=== PATIENT | female | born 1990 | race Hispanic/Latino ===

== ENCOUNTER 2017-05-13 13:34 | Emergency (ER) | payer OTHER ==
--- NOTE | 2017-05-13 14:51 | Cat Scan Report ---
CT HEAD WITHOUT CONTRAST: HISTORY: Seizure. TECHNIQUE: Sequential 2.5mm CT images. COMPARISON: none. FINDINGS: Cerebral Parenchyma: Within normal limits. Cerebellum: Within normal limits. Brainstem: Within normal limits. Ventricles: Normal. Sella: Normal. Extra-axial spaces: Normal. Basal Cisterns: Normal. Intracranial Hemorrhage: None. Midline Shift: None. Calvarium: Normal. A small scalp hematoma is identified in the right frontotemporal region measuring 5 cm in diameter and 0.6 cm in thickness. Sinuses: Normal. Mastoid Air Cells: Normal. Visualized Orbits: Normal. IMPRESSION: Cranial CT scan within normal limits. Right scalp hematoma.
[2017-05-13] MEDS ORDERED: KEPPRA 1,000 MG/NS 0.75% 100ML 1,000 MG/100 ML BAG IV ONE (15:08)
--- NOTE | 2017-05-13 15:20 | Emergency Department Report ---
ED Seizure HPI - General Chief Complaint: Seizure Stated Complaint: SEIZURE Time Seen by Provider: 05/13/17 14:52 Source: patient Mode of arrival: Stretcher Limitations: No Limitations - History of Present Illness Initial Comments: Patient is a 26 years old female history of seizure since 2009, she was seen by a neurologist started on Keppra for a month patient did not have any seizure that she wanted of her medication recently. This is one episode of seizure. Patient stated that she hit her head. Patient denied any other symptoms. MD Complaint: seizure -: Sudden Description of Episode: loss of consciousness, tonic-clonic movement Duration of Episode: 1 -: minutes(s) Witnessed:: No Trauma: Yes (patient hit her head) Seizure History: known seizure disorder Possible Precipitating Event: none Associated Symptoms: denies other symptoms - Related Data Allergies Allergy/AdvReac Type Severity Reaction Status Date / Time codeine Allergy Angioedema Verified 05/13/17 13:44 ED Review of Systems ROS: Stated complaint: SEIZURE Other details as noted in HPI Comment: All other systems reviewed and negative Constitutional: denies: chills, fever ENT: denies: ear pain, throat pain, dental pain Respiratory: denies: cough Cardiovascular: denies: chest pain Gastrointestinal: denies: abdominal pain, nausea, vomiting, diarrhea Genitourinary: denies: urgency, frequency Neurological: headache. denies: numbness, paresthesias Psychiatric: denies: depression, auditory hallucinations, visual hallucinations , homicidal thoughts, suicidal thoughts ED Past Medical Hx - Past Medical History Previous Medical History?: Yes Hx Seizures: Yes - Surgical History Past Surgical History?: No - Social History Smoking Status: Never Smoker Substance Use Type: None ED Physical Exam - General Limitations: No Limitations General appearance: alert, in no apparent distress - Head Head exam: Present: atraumatic, normocephalic, normal inspection - Eye Eye exam: Present: normal appearance, PERRL - ENT ENT exam: Present: normal exam, mucous membranes moist - Neck Neck exam: Present: normal inspection, full ROM. Absent: tenderness, meningismus, lymphadenopathy, thyromegaly - Respiratory Respiratory exam: Present: normal lung sounds bilaterally. Absent: respiratory distress, wheezes, rales, rhonchi, chest wall tenderness - Cardiovascular Cardiovascular Exam: Present: regular rate, normal rhythm, normal heart sounds - GI/Abdominal GI/Abdominal exam: Present: soft, normal bowel sounds. Absent: distended, tenderness, guarding, rebound, rigid, organomegaly, mass, bruit, pulsatile mass , hernia - Extremities Exam Extremities exam: Present: normal inspection, full ROM, normal capillary refill - Back Exam Back exam: Present: normal inspection, full ROM. Absent: tenderness, CVA tenderness (R), CVA tenderness (L) - Neurological Exam Neurological exam: Present: alert, oriented X3, CN II-XII intact, normal gait, reflexes normal. Absent: motor sensory deficit - Psychiatric Psychiatric exam: Present: normal affect, normal mood. Absent: suicidal ideation - Skin Skin exam: Present: warm, intact, normal color. Absent: cyanosis ED Course Vital Signs 05/13/17 13:45 Temperature 97.8 F Pulse Rate 74 Respiratory 16 Rate Blood Pressure 109/72 O2 Sat by Pulse 97 Oximetry - Reevaluation(s) Reevaluation #1: 05/13/17 17:13 No seizure activity noticed in the ER. Patient receive 1 g of IV Keppra. I advised patient to follow-up with her neurologist for further testing.. ED Medical Decision Making - Lab Data Result diagrams: 05/13/17 15:24 05/13/17 15:24 - Radiology Data Radiology results: report reviewed Referring Physician: ODILON MORRIS Patient Name: ALEISHA CASTELLANO Date of : 1990 Sex: Female Report Date: 2017-05-13 Report Status: [place] [address] Cat Scan Report Signed Patient: ALEISHA CASTELLANO MR#: [id number] : 1990 Acct:[id number] Age/Sex: 26 / F ADM Date: 05/13/17 Loc: ED Attending Dr: Ordering Physician: ODILON MORRIS MD Date of Service: 05/13/17 Procedure(s): CT head/brain wo con Accession Number(s): [id number] cc: ODILON MORRIS MD CT HEAD WITHOUT CONTRAST: HISTORY: Seizure. TECHNIQUE: Sequential 2.5mm CT images. COMPARISON: none. FINDINGS: Cerebral Parenchyma: Within normal limits. Cerebellum: Within normal limits. Brainstem: Within normal limits. Ventricles: Normal. Sella: Normal. Extra-axial spaces: Normal. Basal Cisterns: Normal. Intracranial Hemorrhage: None. Midline Shift: None. Calvarium: Normal. A small scalp hematoma is identified in the right frontotemporal region measuring 5 cm in diameter and 0.6 cm in thickness. Sinuses: Normal. Mastoid Air Cells: Normal. Visualized Orbits: Normal. IMPRESSION: Cranial CT scan within normal limits. Right scalp hematoma. Transcribed By: TTR Dictated By: ROSALINDA CARIAS JR, MD Electronically Authenticated By: ROSALINDA CARIAS JR, MD Signed Date/Time: 05/13/171445 DD/ 44 TD/TT: 05/13/171445 Critical care attestation.: If time is entered above; I have spent that time in minutes in the direct care of this critically ill patient, excluding procedure time. ED Disposition Clinical Impression: Seizure, Head injury Disposition: DC-01 TO HOME OR SELFCARE Is pt being admited?: No Condition: Stable Instructions: Minor Head Injury (ED), Epilepsy (ED)
[2017-05-13 15:57] LABS: BUN/Creatinine Ratio 38; Blood Urea Nitrogen 15 mg/dL (7-17); Calcium 8.7 mg/dL (8.4-10.2); Hemolysis Index 29
[2017-05-13 16:24] LABS: Hematocrit 35.8 % (30.3-42.9); Hemoglobin 11.9 gm/dl (10.1-14.3); Mean Corpuscular HGB Conc 33 % (30-34); Mean Corpuscular Hemoglobin 28 pg (28-32); Mean Corpuscular Volume 84 fl (79-97); Platelet Count 225 K/mm3 (140-440); Red Blood Count 4.27 M/mm3 (3.65-5.03)
[2017-05-13 17:02] LABS: Amorphous Crystals,Urine Few; Bacteria,Urine 1+ /HPF (Negative); Bilirubin,Urine NEG (Negative); Blood,Urine MOD (Negative); Color,Urine Yellow (Yellow); Mucus,Urine 3+ /HPF; Nitrite,Urine NEG (Negative); Protein,Urine <15 mg/dL mg/dL (Negative); Urobilinogen,Urine < 2.0 mg/dL (<2.0)
[2017-05-13 17:12] LABS: Amphetamine Screen,Urine PRESUMPTIVE NEGATIVE; Benzodiazepines Screen,Urine PRESUMPTIVE NEGATIVE; Cannabinoid Screen,Urine PRESUMPTIVE NEGATIVE; Cocaine Screen,Urine PRESUMPTIVE NEGATIVE; Methadone Screen,Urine PRESUMPTIVE NEGATIVE; Opiate Screen,Urine PRESUMPTIVE NEGATIVE
[2017-05-13 17:30] VITALS: BP 118/69
== END 2017-05-13 17:30 | disposition home or self-care (01) ==
LOC: ED 13:34
DX: G40.909 Epilepsy, unspecified, not intractable, without status epilepticus (principal); S06.9X9A Unspecified intracranial injury with loss of consciousness of unspecified duration, initial encounter; Z88.6 Allergy status to analgesic agent; W22.8XXA Striking against or struck by other objects, initial encounter; Y93.89 Activity, other specified; Y92.89 Other specified places as the place of occurrence of the external cause; Y99.8 Other external cause status
CPT/HCPCS: 36415; 70450; 80048; 80307; 81001; 84703; 85027; 96365; 99285; J1953

== ENCOUNTER 2019-01-11 14:27 | Emergency (ER) | payer OTHER ==
[2019-01-11] MEDS ORDERED: ATIVAN ONE (14:46)
[2019-01-11] MEDS ORDERED: ATIVAN IV ONE (14:46)
[2019-01-11] MEDS ORDERED: KEPPRA 1,000 MG/NS 0.75% 100ML 1,000 MG/100 ML BAG IV ONE ×2 (14:49→14:52)
[2019-01-11] MEDS ORDERED: NACL 0.9% 1000 ML 1,000 ML IV ONE ×2 (15:38→20:28)
[2019-01-11 15:39] LABS: Hematocrit TNR % (30.3-42.9); Hemoglobin TNR gm/dl (10.1-14.3); Mean Corpuscular HGB Conc TNR % (30-34); Mean Corpuscular Volume TNR fl (79-97); Red Blood Count TNR M/mm3 (3.65-5.03); Red Cell Distribution Width TNR % (13.2-15.2)
[2019-01-11 15:40] LABS: Mean Platelet Volume TNR fl (6-12); Platelet Count TNR K/mm3 (140-440)
--- NOTE | 2019-01-11 15:44 | Emergency Department Report ---
ED Seizure HPI - General Chief Complaint: Seizure Stated Complaint: SEIZURE Time Seen by Provider: 01/11/19 15:12 Source: EMS (ems notes not available at time of chart dictation), RN notes reviewed, old records reviewed Mode of arrival: Stretcher Limitations: Altered Mental Status - History of Present Illness Initial Comments: This is a 28-year-old female. This patient is not known to this provider previously. The patient is currently postictal, and all the history is obtained from the nurse who was taking care of her. As per the nurse, patient was at work, and his usual state of health, when she reportedly had a seizure. A coworker caught her, and she did not fall. Apparently, EMS was contacted. In addition, initially in the emergency room, as per the nurse, the patient is alert and oriented, sober, and exhibits decision-making capacity. Shortly thereafter, the patient reportedly had another generalized tonic-clonic seizure, without trauma, which was terminated with Ativan. The patient is sleeping in the stretcher now, stable, and in no acute distress. She is sleeping but arousable. Additional history is unavailable at this time. No friends, family members or significant others are available for collateral information at this time. MD Complaint: seizure, possible seizure -: This afternoon Description of Episode: loss of consciousness, tonic-clonic movement -: second(s) Witnessed:: Yes Trauma: No Seizure History: known seizure disorder - Related Data Previous Rx's Medication Instructions Recorded Last Taken Type levETIRAcetam [Keppra] 500 mg PO BID #60 tablet 05/13/17 Unknown Rx levETIRAcetam [Keppra TAB] 500 mg PO BID #60 tablet 01/11/19 Unknown Rx Allergies Allergy/AdvReac Type Severity Reaction Status Date / Time codeine Allergy Angioedema Verified 05/13/17 13:44 ED Review of Systems ROS: Stated complaint: SEIZURE Other details as noted in HPI Comment: Unobtainable due to pts medical conditions ED Past Medical Hx - Past Medical History Hx Seizures: Yes - Social History Smoking Status: Never Smoker Substance Use Type: None - Medications Home Medications: Home Medications Medication Instructions Recorded Confirmed Last Taken Type levETIRAcetam [Keppra] 500 mg PO BID #60 tablet 05/13/17 Unknown Rx levETIRAcetam [Keppra TAB] 500 mg PO BID #60 tablet 01/11/19 Unknown Rx ED Physical Exam - General Limitations: Other (patient sleepy and postictal.) General appearance: in no apparent distress - Head Head exam: Present: atraumatic, normocephalic - Eye Eye exam: Present: normal appearance, PERRL - ENT ENT exam: Present: normal exam, normal orophraynx, mucous membranes moist, normal external ear exam - Neck Neck exam: Present: normal inspection. Absent: tenderness, meningismus - Respiratory Respiratory exam: Present: normal lung sounds bilaterally. Absent: respiratory distress - Cardiovascular Cardiovascular Exam: Present: regular rate, normal rhythm, normal heart sounds. Absent: bradycardia, tachycardia, irregular rhythm, systolic murmur, diastolic murmur, rubs, gallop - GI/Abdominal GI/Abdominal exam: Present: soft. Absent: distended, tenderness, guarding, rebound, rigid, pulsatile mass - Extremities Exam Extremities exam: Present: normal inspection, full ROM, other (2+ pulses noted in the bilateral upper, lower extremities. Compartments soft. No long bony ten derness. The pelvis is stable.). Absent: pedal edema, joint swelling, calf tenderness - Back Exam Back exam: Present: normal inspection. Absent: tenderness, CVA tenderness (R), CVA tenderness (L), muscle spasm, paraspinal tenderness, vertebral tenderness - Neurological Exam Neurological exam: Present: altered, other (the patient is postictal. There is no facial droop. Patient noted to be moving 4 extremities spontaneously.) - Skin Skin exam: Present: warm, dry, intact, normal color. Absent: rash ED Course Vital Signs 01/11/19 01/11/19 01/11/19 14:42 14:45 14:49 Temperature Pulse Rate 75 144 H 125 H Respiratory 14 23 26 H Rate Blood Pressure 162/80 Blood Pressure 162/80 [Right] O2 Sat by Pulse 99 92 97 Oximetry 01/11/19 01/11/19 01/11/19 15:01 15:15 15:31 Temperature Pulse Rate 80 84 92 H Respiratory 15 17 22 Rate Blood Pressure 108/61 108/61 114/67 Blood Pressure [Right] O2 Sat by Pulse 100 98 99 Oximetry 01/11/19 01/11/19 01/11/19 15:45 16:01 16:03 Temperature 98.2 F Pulse Rate 82 80 84 Respiratory 21 24 18 Rate Blood Pressure 117/83 114/81 Blood Pressure 117/83 [Right] O2 Sat by Pulse 97 98 96 Oximetry 01/11/19 01/11/19 01/11/19 16:19 16:31 16:45 Temperature Pulse Rate 75 84 Respiratory 23 20 Rate Blood Pressure 114/81 114/81 114/81 Blood Pressure [Right] O2 Sat by Pulse 96 92 98 Oximetry 01/11/19 01/11/19 01/11/19 17:00 17:15 17:30 Temperature Pulse Rate 72 66 64 Respiratory 12 15 10 L Rate Blood Pressure 104/65 103/68 95/53 Blood Pressure [Right] O2 Sat by Pulse 99 99 100 Oximetry 01/11/19 01/11/19 01/11/19 17:45 18:30 19:35 Temperature 98.3 F Pulse Rate 69 63 Respiratory 19 18 Rate Blood Pressure 101/60 90/58 Blood Pressure 103/54 [Right] O2 Sat by Pulse 100 98 97 Oximetry 01/11/19 01/11/19 01/11/19 19:55 20:45 21:45 Temperature 98.5 F Pulse Rate 64 67 62 Respiratory 22 21 20 Rate Blood Pressure 99/69 104/67 Blood Pressure 90/63 [Right] O2 Sat by Pulse 98 97 97 Oximetry 01/11/19 22:45 Temperature Pulse Rate 60 Respiratory 21 Rate Blood Pressure 99/68 Blood Pressure [Right] O2 Sat by Pulse 96 Oximetry - Reevaluation(s) Reevaluation #1: 01/11/19 15:42 Differential diagnosis, including but not limited to: Breakthrough seizure, pneumonia, urinary tract infection medication noncompliance, intracranial lesion Assessment and plan: 28-year-old female with 2 seizures today, with rastafarian of normal mental status in between. The patient has reassuring vital signs at this time and she is protecting her airway at this time. Patient will be placed on seizure precautions, basic laboratory studies ordered, x-ray of the chest ordered, urinalysis ordered, noncontrast CT scan of the brain is ordered. , Reevaluation #2: 01/11/19 20:28 Patient noted to be walking around. However, she is now sleepy. The patient is not in any acute distress. She denies physical pain. She is sleepy, but accompanied by family. The patient is not suitable for discharge at this point in time. Urinalysis is pending at this time. As per discussion with family, patient has not had a seizure for about a year. Care will be transferred to the overnight physician, Dr. Torin Bonner, to follow up on urinalysis, and reassess for improvement in mentation. Anticipate discharge of no additional seizures, and rastafarian of normal mental status. ED Medical Decision Making - Lab Data Result diagrams: 01/11/19 16:27 01/11/19 15:06 Vital Signs 01/11/19 14:49 Pulse Rate 125 H Respiratory 26 H Rate Blood Pressure 162/80 Blood Pressure 162/80 [Right] O2 Sat by Pulse 97 Oximetry Lab Results 01/11/19 Range/Units 15:06 WBC TNR RBC TNR Hgb TNR Hct TNR MCV TNR MCH TNR MCHC TNR RDW TNR Plt Count TNR - EKG Data -: EKG Interpreted by Tn EKG shows normal: sinus rhythm Rate: normal - EKG Data 01/11/19 15:44 There is no prior EKG available for comparison. This is a sinus rhythm, with a left axis deviation, left anterior fascicular block, QTC prolonged, incomplete right bundle-branch block, there is low voltage in the lateral leads, there is no prior EKG available for comparison, the EKG is abnormal, the EKG is not con sistent with ST elevation myocardial infarction. - Radiology Data Radiology results: pending, report reviewed, image reviewed INDICATION / CLINICAL INFORMATION: Altered mental status and seizure. COMPARISON: None available. FINDINGS: SUPPORT DEVICES: None. HEART / MEDIASTINUM: The heart size is borderline. Pulmonary vasculature is normal. LUNGS / PLEURA: There is minimal bibasilar subsegmental atelectasis. No pneumothorax. ADDITIONAL FINDINGS: No significant additional findings. IMPRESSION: 1. Minimal bibasilar subsegmental atelectasis. 2. Borderline heart size, probably normal for technique. Signer Name: Carlos Gunderson MD Signed: 4:51 PM Workstation Name: [id number] Transcribed By: RT Dictated By: Carlos Gunderson MD Electronically Authenticated By: Carlos Gunderson MD Signed Date/Time: 01/11/19 4353 Critical Care Time: Yes Critical care time in (mins) excluding proc time.: 35 Critical care attestation.: If time is entered above; I have spent that time in minutes in the direct care of this critically ill patient, excluding procedure time. ED Disposition Clinical Impression: Seizure Disposition: DC-01 TO HOME OR SELFCARE Is pt being admited?: No Does the pt Need Aspirin: No Condition: Stable Instructions: Recurrent Seizures Adult (ED) Additional Instructions: Do not drive or operate motor vehicles for the next 6 months. Make sure to drink 4-6 cups of water per day. Follow up with a primary care doctor or neurology doctor within the next 2-3 weeks. Return to the emergency room with projectile vomiting, change in mental status, confusion, inability to tolerate liquid feeds, new, worsening or different symptoms not present on the initial emergency room evaluation. Prescriptions: levETIRAcetam [Keppra TAB] 500 mg PO BID #60 tablet Referrals: DINA STERN MD [Primary Care Provider] - 3-5 Days MARKY CAT MD [Staff Physician] - 3-5 Days DOYLE FAITH MD [Staff Physician] - 3-5 Days Forms: Work/School Release Form(ED)
[2019-01-11 15:46] LABS: BUN/Creatinine Ratio 20; Blood Urea Nitrogen 10 mg/dL (7-17); Calcium 9.1 mg/dL (8.4-10.2); Hemolysis Index 56
[2019-01-11] MEDS ORDERED: REGLAN IV ONE (16:28)
[2019-01-11 16:40] LABS: Hematocrit 37.5 % (30.3-42.9); Hemoglobin 12.8 gm/dl (10.1-14.3); Mean Corpuscular HGB Conc 34 % (30-34); Mean Corpuscular Volume 84 fl (79-97); Platelet Count 195 K/mm3 (140-440); Red Cell Distribution Width 13.9 % (13.2-15.2)
--- NOTE | 2019-01-11 16:56 | XRay Report ---
CHEST 1 VIEW 4:33 PM INDICATION / CLINICAL INFORMATION: Altered mental status and seizure. COMPARISON: None available. FINDINGS: SUPPORT DEVICES: None. HEART / MEDIASTINUM: The heart size is borderline. Pulmonary vasculature is normal. LUNGS / PLEURA: There is minimal bibasilar subsegmental atelectasis. No pneumothorax. ADDITIONAL FINDINGS: No significant additional findings. IMPRESSION: 1. Minimal bibasilar subsegmental atelectasis. 2. Borderline heart size, probably normal for technique. Signer Name: Carlos Gunderson MD Signed: 01/11/2019 4:51 PM Workstation Name: [id number]
[2019-01-11 19:18] LABS: Total Cells Counted 100
[2019-01-11 19:19] LABS: Basophils % (Manual) 0 % (0.0-1.8); Eosinophils % (Manual) 0 % (0.0-4.3); Platelet Estimate Consistent w Auto; RBC Morphology Normal
--- NOTE | 2019-01-11 20:23 | Cat Scan Report ---
CT head without contrast Clinical history: Seizure, altered mental status FINDINGS: The motion degrades the image quality at. However, the brain appears to demonstrate appropr iate attenuation without significant interval change from the previous CT of 05/13/2017. The ventricu lar system is unchanged in size and configuration. There is no clear CT evidence of acute intracrania l hemorrhage. The visualized paranasal sinuses are pneumatized. There is a persistent a small exostos is along the outer table of the anterior left frontal bone which is unchanged. All CT scans at this [facility] are performed using the CT dose reduction for ALARA by means of automated exposure control. IMPRESSION: There is no CT evidence of acute intracranial process. Signer Name: Rex Quinn MD Signed: 01/11/2019 8:19 PM Workstation Name: [id number]
[2019-01-11 20:38] LABS: Amphetamine Screen,Urine PRESUMPTIVE NEGATIVE; Bilirubin,Urine Negative (Negative); Blood,Urine Small (Negative); Color,Urine Yellow (Yellow)
[2019-01-11 20:39] LABS: Benzodiazepines Screen,Urine PRESUMPTIVE NEGATIVE; Cannabinoid Screen,Urine PRESUMPTIVE NEGATIVE; Cocaine Screen,Urine PRESUMPTIVE NEGATIVE; Methadone Screen,Urine PRESUMPTIVE NEGATIVE; Opiate Screen,Urine PRESUMPTIVE NEGATIVE; RBC,Urine < 1.0 /HPF (0.0-6.0); Urobilinogen,Urine < 2.0 mg/dL (<2.0); WBC,Urine < 1.0 /HPF (0.0-6.0)
[2019-01-11 23:27] VITALS: BP 99/68
== END 2019-01-11 23:55 | disposition home or self-care (01) ==
LOC: ED 14:27
DX: G40.909 Epilepsy, unspecified, not intractable, without status epilepticus (principal); R11.10 Vomiting, unspecified; Z79.899 Other long term (current) drug therapy; Z88.5 Allergy status to narcotic agent
CPT/HCPCS: 36415; 70450; 71045; 80048; 80307; 81001; 82550; 82962; 83735; 84702; 85007; 85025; 85027; 93005; 93010; 96361; 96365; 96375; 99291; J1953; J2060; J2765; J7030; 80320; G0480